=== PATIENT | male | born 1995 | race Caucasian/White ===

== ENCOUNTER 2016-08-03 10:57 | Emergency (ER) | payer SELFPAY ==
--- NOTE | 2016-08-03 11:54 | CT REPORT ---
EXAM:CAT SCAN; HEAD W/O CON 32880 INDICATION: Head trauma to left frontal area. COMPARISON:None TECHNIQUE:Routine noncontrast axial head CT was performed. Radiation dose reduction technique was uti lized. FINDINGS: Brain volume and ventricular size are normal. No mass, infarct, or hemorrhage is demonstrat ed. There are no extra-axial fluid collections. The skull is intact and visualized paranasal sinuses are unremarkable. IMPRESSION:Normal noncontrast head CT. This report was discussed with Dr. Ly on 08/03/2016 at 11:50 AM. Final Electronic Signature: This report was electronically signed by Jf Reilly MD on 08/03/2016 11:52 AM. luis enrique /
[2016-08-03] MEDS ORDERED: IBUPROFEN 600 MG TABLET PO ONE (12:17)
--- NOTE | 2016-08-03 12:46 | ER PHYSICIAN DOCUMENTATION ---
Physician Documentation [facility] Name:Bala Moses Age:20 yrs Sex:Male :1995 Arrival Date:08/03/2016 Time:10:57 Bed1 Private MD: Mukul England Disposition: 08/03 13:00 Chart complete. tl1 Disposition: 08/03/16 12:03 Discharged to Home/Self Care. Impression: Severe Headache. - Condition is Good. - Discharge Instructions: HEADACHE, Unspecified. - Prescriptions for Imitrex 5 mg/Actuation Nasal Aerosol, [place] - inhale 1 spray by INTRANASAL route one time x 1 dose; if headache returns, the dose may be repeated once after 2 hours, not to exceed a total daily dose of 8 sprays; 1 Inhaler. - Medical Reconciliation form form. - Follow up: Kimani Duke MD; When: 4- 6 days; Reason: Recheck today's complaints, Continuance of care. - Problem is new. - Symptoms have improved. HPI: 11:00 This 20 yrs old Male presents to ER via Private Vehicle with complaints of tl1 Head Injury-Adult. 11:00 Context of injury: The problem was sustained at home, resulted from a direct blow. 2 tl1 nights ago after work he slumped down on the couch and struck the left upper anterolateral aspect of his forehead. No LOC. He had a little bit of pain, but no h/a, n/v or other neurologic symptoms. He went to bed and slept fine. He felt fine when he awakened, and went to work. He was fine, until an hour or so later, when he had the abrupt onset of a severe h/a, 10/10, similar to headaches he has had 2-3 times a month since age 7. He became dyspneic. Since then he has had several similar frontal headaches which come on abruptly over a minute or two and then last for 10-20 minutes. He calls these "migraines". They are not associated with n/v or any visual symptoms except photophobia. He says he has never seen a doctor for these or had any kind of workup.. Historical: - Allergies: No known drug Allergies; - Home Meds: 1. ranitidine HCl Oral 2. Fluoxetine Oral 3. BuSpar Oral - PMHx: ANXIETY; Depression; - PSHx: None; - Tetanus: unknown. - Ebola Screening: : No symptoms or risks identified at this time. . - Immunization history: Flu Vaccine None. - Social history: Smoking status: Patient uses tobacco products, heavy tobacco smoker. Patient/guardian denies using alcohol, street drugs. ROS: 11:45 Eyes: Positive for photophobia, Negative for blurry vision, pain, redness, visual tl1 disturbance. 11:45 ENT: Positive for epistaxis, which fairly frequently occurs at the same time as these headaches., Negative for drainage from ear(s). 11:45 Neck: Negative for injury or acute deformity, pain with movement, pain at rest, stiffness. Exam: 11:20 Constitutional: This is a well developed, well nourished patient who is awake, alert, tl1 and in no acute distress. 11:20 Head/face: Exam is negative for abrasion(s), deformity, ecchymosis, erythema, hematoma, tl1 laceration(s), raccoon eyes, Noted is tenderness, of the left frontal area and left side of forehead. 11:20 Eyes: Periorbital structures: appear normal, Pupils: equal, round, and reactive to light and accomodation, Extraocular movements: no acute changes. 11:20 ENT: External ear(s): are unremarkable, TM's: are normal. 11:20 Neck: External neck: is normal, C-spine: vertebral tenderness, is not appreciated, ROM/movement: is normal, is supple. 11:20 Chest/axilla: Palpation: tenderness, is not appreciated. 11:20 Cardiovascular: Rate: normal, Rhythm: regular, Heart sounds: normal. 11:20 Respiratory: the patient does not display signs of respiratory distress, Respirations: normal, Breath sounds: are normal. 11:20 Abdomen/GI: Palpation: abdomen is soft and non-tender. 11:20 Skin: Exam negative for acute changes. 11:20 Neuro: Orientation: is normal, Mentation: is normal, Memory: is normal, Cranial nerves: grossly normal, Motor: moves all fours, strength is 5/5 in all extremities, Sensation: Gait: is steady, at a normal pace, without difficulty, appropriate for age, Deep tendon reflexes are 3+ (brisk) in the right tricep, right brachioradialis, right patellar, right Achilles, left tricep, left brachioradialis, left patellar and left Achilles, Babinski testing reveals downgoing, right foot and left foot. Vital Signs: 11:03 BP 155 / 94 LA Sitting (auto/reg); Pulse 80 LA; Resp 14 S; Temp 97.1(O); Pulse Ox 94% em3 on R/A; Weight 95.25 kg (R); Height 5 ft. 7 in. (170.18 cm) (R); Pain 7/10; 11:32 BP 123 / 65; Pulse 85; Pulse Ox 93% ; ma 11:03 Body Mass Index 32.89 (95.25 kg, 170.18 cm) em3 Dana Coma Score: 11:09 Eye Response: spontaneous(4). Verbal Response: oriented(5). Motor Response: obeys ma commands(6). Total: 15. Trauma Score (Adult): 10:15 Eye Response: spontaneous(1); Verbal Response: oriented(1); Motor Response: obeys ma commands(2); Systolic BP: > 89 mm Hg(4); Respiratory Rate: 10 to 29 per min(4); Dana Score: 15; Trauma Score: 12 10:15 Eye Response: spontaneous(1); Verbal Response: oriented(1); Motor Response: obeys ma commands(2); Systolic BP: > 89 mm Hg(4); Respiratory Rate: 10 to 29 per min(4); [place] Score: 15; Trauma Score: 12 MDM: 10:59 Patient medically screened. tl1 13:00 Data reviewed: vital signs, nurses notes, , and as a result, I will discharge patient. tl1 08/03 11:56 Order name: CAT SCAN; HEAD W/O CON [id number]; Complete Time: 12:26 EDMS 08/03 12:05 Interpretation: Normal. tl1 Dispensed Medications: 12:44 Drug: Ibuprofen 600 mg; Route: PO; ma 12:44 Follow up: Response: Medication administered at discharge. mn Signatures: Symone Batres, RN RN Mukul Russ MD MD tl1
--- NOTE | 2016-08-03 12:46 | ER NURSING DOCUMENTATION ---
Nurse's Notes [facility] Name:Bala Moses Age:20 yrs Sex:Male :1995 Arrival Date:08/03/2016 Time:10:57 Bed1 Private MD: Diagnosis:Severe Headache Presentation: 08/03 11:02 Acuity: KAMRAN 4 tg 11:09 Presenting complaint: Patient states: Patient states he struck his right frontal area ma of his head 2 nights ago States has had headache and nausea since Small amount of sweling to forehead left frontal MAEW Recalls incident. Transition of care: Home. Mechanism of Injury: resulted from a direct blow. 11:09 Method Of Arrival: Private Vehicle ma Triage Assessment: 11:18 General: Appears in no apparent distress, well nourished, well groomed, Behavior is ma cooperative. Pain: Complains of pain in forehead. Neuro: Level of Consciousness is awake, alert, Oriented to person, place, time, event. 11:23 Neuro: Reports headache in left frontal area. ma Historical: - Allergies: No known drug Allergies; - Home Meds: 1. ranitidine HCl Oral 2. Fluoxetine Oral 3. BuSpar Oral - PMHx: ANXIETY; Depression; - PSHx: None; - Tetanus: unknown. - Ebola Screening: : No symptoms or risks identified at this time. . - Immunization history: Flu Vaccine None. - Social history: Smoking status: Patient uses tobacco products, heavy tobacco smoker. Patient/guardian denies using alcohol, street drugs. Screenin:19 Infectious Disease Risk None. Abuse screen: Denies threats or abuse. Nutritional ma screening: No deficits noted. Assessment: 11:34 Reassessment: Patient states symptoms have improved. Patient appears in no apparent ma distress at this time. Vital Signs: 11:03 BP 155 / 94 LA Sitting (auto/reg); Pulse 80 LA; Resp 14 S; Temp 97.1(O); Pulse Ox 94% em3 on R/A; Weight 95.25 kg (R); Height 5 ft. 7 in. (170.18 cm) (R); Pain 7/10; 11:32 BP 123 / 65; Pulse 85; Pulse Ox 93% ; ma 11:03 Body Mass Index 32.89 (95.25 kg, 170.18 cm) em3 Dana Coma Score: 11:09 Eye Response: spontaneous(4). Verbal Response: oriented(5). Motor Response: obeys ma commands(6). Total: 15. Trauma Score (Adult): 10:15 Eye Response: spontaneous(1); Verbal Response: oriented(1); Motor Response: obeys ma commands(2); Systolic BP: > 89 mm Hg(4); Respiratory Rate: 10 to 29 per min(4); Dana Score: 15; Trauma Score: 12 10:15 Eye Response: spontaneous(1); Verbal Response: oriented(1); Motor Response: obeys ma commands(2); Systolic BP: > 89 mm Hg(4); Respiratory Rate: 10 to 29 per min(4); Dana Score: 15; Trauma Score: 12 ED Course: 10:57 Pulse Ox - RN Monitoring Only NIBP On - RN Monitoring Only. ma 10:58 Patient arrived in ED. em3 10:59 Mukul Ly MD is Attending Physician. tl1 11:02 Triage completed. tg 11:05 Valuables Remains with patient Patient has correct armband on for positive em3 identification. Bed in low position. Call light in reach. Side rails up X 1. 11:06 Symone Batres, JEREMY is Primary Nurse. ma 11:[address] hz 11:20 Ice pack to injury. ma 11:[address] Patient moved back from [address]. hz 11:59 Kimani Duke MD is Referral Physician. tl1 Administered Medications: 12:44 Drug: Ibuprofen 600 mg; Route: PO; ma 12:44 Follow up: Response: Medication administered at discharge. ak Outcome: 12:03 Discharge ordered by . tl1 12:45 Patient left the ED. ma Signatures: Gama Salcedo RN RN Symone Batres, Suraj Sifuentes RN, ma em3 Mukul Ly MD MD tl1 Lucia Edgar
== END 2016-08-03 12:46 | disposition home or self-care (01) ==
LOC: ER 10:57
DX: R51 Headache (principal); S09.90XA Unspecified injury of head, initial encounter; W22.8XXA Striking against or struck by other objects, initial encounter; Y92.019 Unspecified place in single-family (private) house as the place of occurrence of the external cause; Z79.899 Other long term (current) drug therapy
CPT/HCPCS: 70450; 99284